=== PATIENT | male | born 1960 | race American Indian/Alaskan Native ===

== ENCOUNTER 2017-06-18 01:46 | Emergency (ER) | payer OTHER ==
[2017-06-18 02:01] VITALS: BP 127/79
--- NOTE | 2017-06-18 03:32 | Emergency Department Report ---
ED Male HPI - General Chief complaint: Rectal Pain Stated complaint: RECTAL PAIN Time Seen by Provider: 06/18/17 03:01 Source: patient Mode of arrival: Ambulatory Limitations: No Limitations - History of Present Illness Initial comments: 56 yo male noticed swelling around his rectum for 3 days. The swelling is only minimally painful, no bleeding, no drainage and he has never had this before .Jez anal intercourse. -: days(s) (3) Radiation: none Severity scale (0 -10): 1 Quality: aching Consistency: intermittent Improves with: none denies other symptoms. denies: fever - Related Data Previous Rx's Medication Instructions Recorded Last Taken Type Hydrocortisone [Anusol-Hc] 30 gm RC BID #1 cream..g. 06/18/17 Unknown Rx Pramoxine HCl [Proctofoam] 15 gm TP QID #1 foam 06/18/17 Unknown Rx Allergies Allergy/AdvReac Type Severity Reaction Status Date / Time No Known Allergies Allergy Unverified 06/18/17 02:02 ED Review of Systems ROS: Stated complaint: RECTAL PAIN Other details as noted in HPI Constitutional: denies: chills, fever Eyes: denies: eye pain, eye discharge, vision change ENT: denies: ear pain, throat pain Respiratory: denies: cough, shortness of breath, wheezing Cardiovascular: denies: chest pain, palpitations Endocrine: no symptoms reported Gastrointestinal: denies: abdominal pain, nausea, diarrhea Genitourinary: denies: urgency, dysuria Musculoskeletal: denies: back pain, joint swelling, arthralgia Skin: denies: rash, lesions Neurological: denies: headache, weakness, paresthesias Psychiatric: denies: anxiety, depression Hematological/Lymphatic: denies: easy bleeding, easy bruising ED Past Medical Hx - Past Medical History Previous Medical History?: No - Surgical History Past Surgical History?: No - Social History Smoking Status: Never Smoker Substance Use Type: None - Medications Home Medications: Home Medications Medication Instructions Recorded Confirmed Last Taken Type Hydrocortisone [Anusol-Hc] 30 gm RC BID #1 cream..g. 06/18/17 Unknown Rx Pramoxine HCl [Proctofoam] 15 gm TP QID #1 foam 06/18/17 Unknown Rx ED Physical Exam - General Limitations: No Limitations General appearance: alert, in no apparent distress - Head Head exam: Present: atraumatic, normocephalic - Eye Eye exam: Present: normal appearance - ENT ENT exam: Present: mucous membranes moist - Neck Neck exam: Present: normal inspection - Respiratory Respiratory exam: Present: normal lung sounds bilaterally. Absent: respiratory distress - Cardiovascular Cardiovascular Exam: Present: regular rate, normal rhythm. Absent: systolic murmur, diastolic murmur, rubs, gallop - GI/Abdominal GI/Abdominal exam: Present: soft, normal bowel sounds - Rectal Rectal exam: Present: hemorrhoids (small, minimally tender around most of anus) , tenderness (swelling mildly tender) - exam: Present: normal inspection. Absent: testicular tenderness, urethral discharge, scrotal swelling, vertical testicular lie - Extremities Exam Extremities exam: Present: normal inspection - Back Exam Back exam: Present: normal inspection - Neurological Exam Neurological exam: Present: alert, oriented X3 - Psychiatric Psychiatric exam: Present: normal affect, normal mood - Skin Skin exam: Present: warm, dry, intact, normal color. Absent: rash ED Course Vital Signs 06/18/17 01:54 Temperature 98.2 F Pulse Rate 88 Blood Pressure 127/79 O2 Sat by Pulse 100 Oximetry Critical care attestation.: If time is entered above; I have spent that time in minutes in the direct care of this critically ill patient, excluding procedure time. ED Disposition Clinical Impression: Hemorrhoids without complication Disposition: DC-01 TO HOME OR SELFCARE Is pt being admited?: No Does the pt Need Aspirin: No Condition: Stable Instructions: Hemorrhoids (ED) Additional Instructions: Please have some sitz bath about 2-3 times per day. Prescriptions: Hydrocortisone [Anusol-Hc] 30 gm RC BID #1 cream..g. Pramoxine HCl [Proctofoam] 15 gm TP QID #1 foam Referrals: PRIMARY CARE, [Primary Care Provider] - 3-5 Days [facility] [place] [facility] [place] - 3-5 Days Time of Disposition: 03:46
== END 2017-06-18 03:56 | disposition home or self-care (01) ==
LOC: ED 01:46
DX: K64.9 Unspecified hemorrhoids (principal)
CPT/HCPCS: 99282

== ENCOUNTER 2017-06-20 17:27 | Emergency (ER) | payer OTHER ==
[2017-06-20 19:17] LABS: Anion Gap 24 mmol/L; BUN/Creatinine Ratio 26; Blood Urea Nitrogen 18 mg/dL (9-20); Calcium 10.2 mg/dL (8.4-10.2); Carbon Dioxide 26 mmol/L (22-30); Chloride 88.8 mmol/L (98-107); Glucose 73 mg/dL (75-100); Potassium 5.1 mmol/L (3.6-5.0); Sodium 134 mmol/L (137-145)
[2017-06-20 19:19] LABS: Eosinophils % (Auto) 1.6 % (0.0-4.3); Hematocrit 47.1 % (35.5-45.6); Hemoglobin 15.7 gm/dl (11.8-15.2); Mean Corpuscular HGB Conc 33 % (32-34); Mean Corpuscular Hemoglobin 34 pg (28-32); Mean Corpuscular Volume 102 fl (84-94); Platelet Count 350 K/mm3 (140-440); Red Blood Count 4.61 M/mm3 (3.65-5.03); Red Cell Distribution Width 16.7 % (13.2-15.2); White Blood Count 13.1 K/mm3 (4.5-11.0)
[2017-06-21 00:38] VITALS: BP 125/89
--- NOTE | 2017-06-21 07:23 | XRay Report ---
Chest 2 views: History: Shortness of breath. Findings: Left heart order obscured by left pleural effusion. Borderline cardiomegaly. Trachea is midline. Minimal blunting of right CP angle. No consolidation. Impression: Moderate left pleural effusion. Minimal right pleural effusion.
== END 2017-06-21 02:02 | disposition left against medical advice (07) ==
LOC: ED 17:27
DX: R06.02 Shortness of breath (principal); Z53.21 Procedure and treatment not carried out due to patient leaving prior to being seen by health care provider
CPT/HCPCS: 36415; 71020; 80048; 84484; 85025; 93005; 93010